=== PATIENT | female | born 1935 | race Two or more races ===

== ENCOUNTER 2020-10-25 09:28 | Outpatient (CLI) | payer OTHER | END 2020-10-25 10:01 | disposition home or self-care (01) | LOC: OFIC 805 09:28 | PROVIDERS: ATTEND Otolaryngology Otology & Neurotology | DX: H69.83 Other specified disorders of Eustachian tube, bilateral (principal); H93.13 Tinnitus, bilateral; R42 Dizziness and giddiness; H61.23 Impacted cerumen, bilateral; H90.3 Sensorineural hearing loss, bilateral ==